=== PATIENT | male | born 1960 ===

== ENCOUNTER 2020-10-22 13:48 | Emergency (ER) | payer OTHER ==
[~2020-10-22] VITALS: Ht 162.6 cm; Wt 73.9 kg
[2020-10-22] MEDS ORDERED: ECOTRIN81 MG (14:00)
[2020-10-22] MEDS ORDERED: ZOCOR20 MG (14:00)
[2020-10-22] MEDS ORDERED: FOLIC ACID20 MG (14:01)
[2020-10-22] MEDS ORDERED: ALDACTONE25 MG (14:01)
[2020-10-22] MEDS ORDERED: ATACAND32 MG (14:02)
[2020-10-22] MEDS ORDERED: NORFLEX100MG PO (15:48)
[2020-10-22] MEDS ORDERED: MEDROLPACK PO (15:49)
== END 2020-10-22 16:58 | disposition home or self-care (01) ==
LOC: ER 13:48
DX: G89.11 Acute pain due to trauma (principal); M54.5 Low back pain